=== PATIENT | male | born 1995 | race Two or more races ===

== ENCOUNTER 2020-10-12 10:14 | Emergency (ER) | payer OTHER ==
[~2020-10-12] VITALS: Ht 185.4 cm; Wt 72.7 kg
[2020-10-12 12:26] VITALS: BP 122/68
== END 2020-10-12 13:20 | disposition home or self-care (01) ==
LOC: EMS 10:16
DX: T18.2XXA Foreign body in stomach, initial encounter (principal); F12.90 Cannabis use, unspecified, uncomplicated; Y35.811A Legal intervention involving manhandling, law enforcement official injured, initial encounter; Y93.89 Activity, other specified; Y92.89 Other specified places as the place of occurrence of the external cause; Y99.8 Other external cause status
CPT/HCPCS: 74018; 99283